=== PATIENT | male | born 1980 | race Caucasian/White ===

== ENCOUNTER 2019-11-05 21:15 | Emergency (ER) | payer OTHER ==
[2019-11-05] MEDS ORDERED: SODIUM CHLORIDE 0.9% 1,000 ML IV STA (21:44)
[2019-11-05] MEDS ORDERED: METOCLOPRAMIDE 5 MG/ML 2 ML VIAL IVP STA (21:44)
[2019-11-05] MEDS ORDERED: diphenhydrAMINE 50 MG/ML 1 ML VIAL IVP STA (21:45)
--- NOTE | 2019-11-05 21:45 | ED ---
Dizziness HPI - General Chief Complaint: Dizziness Stated Complaint: Diziness, Lightheaded Time Seen by Provider: 11/05/19 21:33 Source: patient Mode of arrival: wheelchair Limitations: no limitations - History of Present Illness Initial Comments: Patient is a 39-year-old male presenting to emergency Department chief complaint of dizziness and lightheadedness. Patient states he works at [employer] where was extremely hot today. Patient states he was also hot outside today and he was wearing a mask which restricted his breathing. Patient states he felt claustrophobic and at the same time he did not have anything to drink throughout the whole shift which started from 9 AM this morning. Patient states prior to coming here, she felt dizzy where he was spinning around the room and felt lightheaded but did not lose consciousness. States after he came to the ED, he is feeling much better and the dizziness and lightheadedness has reso lved. Patient states he can feel a migraine coming on. - Related Data Home Medications Medication Instructions Recorded Confirmed [id number] 1 each PO Q4HR PRN 11/12/15 11/12/15 [Excedrin] Previous Rx's Medication Instructions Recorded Rizatriptan Benzoate [Maxalt PEDIATRIC RADIOLOGIST] 10 mg PO ONCE PRN #20 tab.rapdis 09/11/15 Hydrocortisone Cream 1 applic TOPICAL TID 14 Days 11/12/15 [Hydrocortisone 1% Cream] cream..g. diphenhydrAMINE [Benadryl] 1 - 2 tab PO Q6HR PRN #30 capsule 11/12/15 predniSONE [Deltasone] 20 mg PO DIRECTED #11 tab 11/12/15 Allergies Allergy/AdvReac Type Severity Reaction Status Date / Time Pork/Porcine Containing Allergy Anaphylaxis Verified 11/05/19 21:22 Products [Pork] Review of Systems ROS Statement: Those systems with pertinent positive or pertinent negative responses have been documented in the HPI. ROS Other: All systems not noted in ROS Statement are negative. Past Medical History Past Medical History: No Reported History Additional Past Medical History / Comment(s): migraines History of Any Multi-Drug Resistant Organisms: None Reported Past Surgical History: Back Surgery, Orthopedic Surgery Additional Past Surgical History / Comment(s): right knee surgery Past Psychological History: No Psychological Hx Reported Smoking Status: Never smoker Past Alcohol Use History: Occasional Past Drug Use History: None Reported General Exam Limitations: no limitations Course Vital Signs 11/05/19 11/05/19 21:19 23:18 Temperature 98.1 F 97.8 F Pulse Rate 90 56 L Respiratory 20 18 Rate Blood Pressure 126/84 138/88 O2 Sat by Pulse 97 95 Oximetry Medical Decision Making - Medical Decision Making patient is a 39-year-old male presenting to emergency for a chief complaint of left headedness and dizziness. On exam patient has dry mucous membranes. Nilesh frazier was working in a hot environment, wearing a mask for 12 hours straight with minimal water intake. On exam patient did report some improvement compared she onset of symptoms. He is neurologically intact. He does have history of migraines and felt when there was coming on. Patient was given Reglan, Benadryl and IV fluids. On reevaluation patient reports all his symptoms have resolved and now he is back to baseline. Strict return parameters were thoroughly discussed with patient was understanding and agreeable. Case discussed with physician. Disposition Clinical Impression: Dehydration, Headache, Heat exhaustion Disposition: HOME SELF-CARE Condition: Stable Instructions (If sedation given, give patient instructions): Heat Exhaustion (ED) Additional Instructions: Drink plenty of fluids. Return to emergency department if symptoms worsen. Is patient prescribed a controlled substance at d/c from ED?: No Referrals: Gilma Jewell MD [Primary Care Provider] - 1-2 days Time of Disposition: 22:58
[2019-11-05 23:19] VITALS: BP 138/88; PULSE 56; RESP 18; TEMP 97.8
== END 2019-11-05 23:19 | disposition home or self-care (01) ==
LOC: EC 21:15
DX: T67.5XXA Heat exhaustion, unspecified, initial encounter (principal); E86.0 Dehydration; Z91.018 Allergy to other foods; Z86.69 Personal history of other diseases of the nervous system and sense organs
CPT/HCPCS: 99284; 96374; 96375; 96361; 93005; J1200; J2765